=== PATIENT | male | born 1935 | race Caucasian/White ===

== ENCOUNTER 2019-04-29 09:10 | Inpatient (IN) | payer MEDICARE, OTHER ==
[~2019-04-29] VITALS: Ht 162.6 cm; Wt 92.5 kg
[2019-04-29 10:21] LABS: Basophils # (auto) 0 uL; Basophils % (auto) 0.3 % (0.0-2.0); Eosinophils # (auto) 0.1 uL; Eosinophils % (auto) 0.6 % (0.0-7.0); Hematocrit 46.2 % (41.0-53.0); Hemoglobin 15.6 g/dL (13.5-17.5); Lymphocytes # (auto) 1.1 uL; Lymphocytes % (auto) 10.9 % (10.0-50.0); Mean Corpuscular Hemoglobin 30.9 pg (28.0-32.0); Mean Corpuscular Hgb Conc. 33.7 g/dL (32.0-36.0); Mean Corpuscular Volume 91.9 fL (80.0-100.0); Monocytes # (auto) 0.8 uL; Monocytes % (auto) 7.9 % (0.0-12.0); Neutrophils % (auto) 80.3 % (37.0-80.0); Nucleated Red Blood Cells % 0.1 %; Platelet Count (auto) 124 10^3/uL (140-450); Red Blood Cells 5.03 10^6/uL (4.5-5.90); Red Cell Distribution Width 13.8 % (11.8-14.3)
[2019-04-29 10:34] LABS: Chloride 108 mmol/L (98-107); Potassium 3.8 mmol/L (3.5-5.1); Sodium 142 mmol/L (136-145)
[2019-04-29 10:47] LABS: Alanine Aminotransferase 25 U/L (16-61); Albumin 3.7 g/dL (3.4-5.0); Alkaline Phosphatase 59 U/L (45-117); Anion Gap 7 (5-15); Aspartate Aminotransferase 20 U/L (15-37); BUN/Creatinine Ratio 19.6; Bilirubin, Total 0.9 mg/dL (0.2-1.0); Blood Urea Nitrogen 18 mg/dL (7-18); Calcium 8.3 mg/dL (8.5-10.1); Carbon Dioxide 27 mmol/L (21-32); GFR African American 102 mL/min; GFR Non-African American 84 mL/min; Glucose 125 mg/dL (74-106); Magnesium 2.1 mg/dL (1.6-2.6)
[2019-04-29 12:32] LABS: Urine Bacteria NONE SEEN /hpf (None Seen); Urine Blood Negative /uL (Negative); Urine Specific Gravity 1.019 (1.001-1.035); Urine WBC <1 /hpf (0 - 3)
[2019-04-29] MEDS ORDERED: ONDANSETRON HCL 4 MG/2 ML VIAL IV PRN (14:45)
[2019-04-29] MEDS ORDERED: HYDROcodone-ACET 5/325MG TAB PO PRN (14:45)
[2019-04-29] MEDS ORDERED: ACETAMINOPHEN 500 MG TAB PO PRN (14:45)
[2019-04-29] MEDS ORDERED: hydrALAZINE HCL 20 MG/ML VL IV PRN (14:45)
[2019-04-29] MEDS ORDERED: MORPHINE SULF INJ 2 MG/ML SYRINGE 1ML IV PRN (14:45)
[2019-04-29] MEDS ORDERED: NITROGLYCERIN 0.4 MG SL TAB SL PRN (14:45)
[2019-04-29 15:13] LABS: Cholesterol 103 mg/dL (< 200)
[2019-04-29 15:16] LABS: HDL Cholesterol 38 mg/dL (40-59); LDL Cholesterol 60 mg/dL (< 100); Triglycerides 75 mg/dL (< 150)
[2019-04-29 20:30] VITALS: BP 120/71
--- NOTE | 2019-04-29 20:30 | NUR ---
Telemetry admit from [facility] admitted to Telemetry unit after SBAR received. Patient oriented to SANA GRIFFITH RN primary RN, unit, room, bed, and unit policies regarding patient care and visiting hours. Patient now on continuous telemetry monitoring, tele box # 21 and telemetry reading on arrival to unit is SR. Patient placed on bedside oxygen, weighed by bedscale and encouraged to call if they need something. All questions and concerns addressed, patient verbalized understanding.
[2019-04-29 22:00] VITALS: BP 120/71
[2019-04-29] MEDS: APIXABAN 2.5 MG TAB PO SCH (22:00)
[2019-04-29] MEDS: DOCUSATE SOD 100 MG CAP PO SCH (22:00)
[2019-04-29] MEDS: METOPROLOL TARTRATE 25 MG TAB PO SCH (22:01)
[2019-04-29] MEDS: ATORVASTATIN 20 MG TAB PO SCH (22:01)
[2019-04-30 05:00] VITALS: BP 113/73
[2019-04-30 06:31] LABS: Basophils # (auto) 0 uL; Basophils % (auto) 0.4 % (0.0-2.0); Eosinophils # (auto) 0.1 uL; Eosinophils % (auto) 1.4 % (0.0-7.0); Hematocrit 46.3 % (41.0-53.0); Hemoglobin 15.5 g/dL (13.5-17.5); Lymphocytes # (auto) 1.7 uL; Lymphocytes % (auto) 23.8 % (10.0-50.0); Mean Corpuscular Hgb Conc. 33.5 g/dL (32.0-36.0); Mean Corpuscular Volume 92.6 fL (80.0-100.0); Monocytes # (auto) 0.7 uL; Monocytes % (auto) 10.1 % (0.0-12.0); Neutrophils # (auto) 4.5 uL; Neutrophils % (auto) 64.3 % (37.0-80.0); Nucleated Red Blood Cells % 0.1 %; Platelet Count (auto) 118 10^3/uL (140-450); Red Cell Distribution Width 13.4 % (11.8-14.3)
[2019-04-30 06:37] LABS: INR 1.09 (0.9-1.15); Partial Thromboplastin Time 30.2 sec (23.64-32.05)
[2019-04-30 06:41] LABS: Calcium 8.6 mg/dL (8.5-10.1)
[2019-04-30 06:44] LABS: BUN/Creatinine Ratio 13.5
[2019-04-30 08:00] VITALS: BP 102/72
--- NOTE | 2019-04-30 08:00 | NUR ---
Opening Shift Note Assumed care of patient, resting with eyes closed, wakes easily to touch. No S/S of distress/SOB or pain. Instructed on POC and to call for assist PRN, will continue to monitor for changes Q1hr and PRN. Addendum: 04/30/19 at 0921 by CASI ANDERSON RN RN WRONG PATIENT
--- NOTE | 2019-04-30 08:00 | NUR ---
Opening Shift Note Assumed care of patient, awake and alert. Ambulatory independently. No S/S of distress/SOB or pain. Instructed on POC and to call for assist PRN, will continue to monitor for changes Q1hr and PRN.
[2019-04-30] MEDS ORDERED: ASPirin-EC 81 mg tab PO SCH (10:00)
[2019-04-30] MEDS: APIXABAN 2.5 MG TAB PO SCH ×2 (10:27→21:54)
[2019-04-30] MEDS: FAMOTIDINE 20 MG TAB PO SCH (10:27)
[2019-04-30] MEDS: DOCUSATE SOD 100 MG CAP PO SCH ×2 (10:27→21:53)
[2019-04-30] MEDS: LISINOPRIL 10 MG TAB PO SCH (10:27)
[2019-04-30] MEDS: METOPROLOL TARTRATE 25 MG TAB PO SCH ×2 (10:28→21:54)
[2019-04-30 12:00] VITALS: BP 144/86
[2019-04-30 17:00] VITALS: BP 121/99
--- NOTE | 2019-04-30 19:00 | NUR ---
Opening Shift Note Assumed care of patient, awake and alert. No S/S of distress/SOB or pain. Instructed on POC and to call for assist PRN, will continue to monitor for changes Q1hr and PRN.
--- NOTE | 2019-04-30 21:45 | NUR ---
Hospitalist paged: Patient informed RN he had difficulty falling asleep last night and he would like a sleeping aide to help him sleep tonight.
[2019-04-30] MEDS: ATORVASTATIN 20 MG TAB PO SCH (21:54)
--- NOTE | 2019-04-30 22:22 | NUR ---
Hospitalist returned page: Hospitalist updated on patient condition and situation. New orders obtained.
[2019-04-30] MEDS ORDERED: TEMAZEPAM 15 MG CAP PO PRN (22:30)
[2019-04-30 23:22] VITALS: BP 123/87
[2019-05-01 05:50] VITALS: BP 100/65
--- NOTE | 2019-05-01 08:00 | NUR ---
Opening Shift Note Assumed care of patient, awake and alert. No S/S of distress/SOB or pain. Patient ready to go home. Waiting for ECHO results and patient to be seen by MD. Instructed on POC and to call for assist PRN, will continue to monitor for changes Q1hr and PRN.
[2019-05-01 09:00] VITALS: BP 110/68
[2019-05-01] MEDS: DOCUSATE SOD 100 MG CAP PO SCH (09:54)
[2019-05-01] MEDS: FAMOTIDINE 20 MG TAB PO SCH (09:54)
[2019-05-01] MEDS: APIXABAN 2.5 MG TAB PO SCH (09:54)
[2019-05-01] MEDS: LISINOPRIL 10 MG TAB PO SCH (10:57)
[2019-05-01] MEDS: METOPROLOL TARTRATE 25 MG TAB PO SCH (10:57)
--- NOTE | 2019-05-01 12:04 | NUR ---
CARDIO BOWEN COLIN SAW THE PATIENT, ECHO RESULTED, SHE SAID IT WAS OK FOR PATIENT TO BE DISCHARGED TODAY AND FOLLOW UP WITH HIS MALE MODEL OUTPATIENT.
[2019-05-01 13:00] VITALS: BP 111/73
--- NOTE | 2019-05-01 16:00 | NUR ---
DISCHARGE WENT OVER DISCHARGE PAPERWORK WITH PATIENT. REMOVED IV AND ID BAND. REMOVED TELEMETRY AND SENT TELE BOX TO [facility]. GAVE PRESCRIPTION TO PATIENT. SPOUSE AT BEDSIDE. PATIENT IS ABLE TO WALK OUT ON HIS OWN, HAS BEEN WALKING AROUND DURING HIS STAY AND IS STABLE. ALL BELONGINGS TAKEN FROM ROOM, PATIENT LEFT IN PRIVATE VEHICLE.
== END 2019-05-01 16:04 | disposition home or self-care (01) | DRG 202 ==
LOC: EDBD 09:10 → ER 09:17 → TELE 09:18 → TELE-WESTW 20:19
PROVIDERS: ADMIT Nurse Practitioner Acute Care; ATTEND Internal Medicine
DX: J45.901 Unspecified asthma with (acute) exacerbation (principal); I24.9 Acute ischemic heart disease, unspecified; E78.00 Pure hypercholesterolemia, unspecified; E03.9 Hypothyroidism, unspecified; K21.9 Gastro-esophageal reflux disease without esophagitis; M19.90 Unspecified osteoarthritis, unspecified site; E66.9 Obesity, unspecified; E78.5 Hyperlipidemia, unspecified; I11.9 Hypertensive heart disease without heart failure; I48.2 Chronic atrial fibrillation; I08.1 Rheumatic disorders of both mitral and tricuspid valves; Z79.01 Long term (current) use of anticoagulants; Z82.49 Family history of ischemic heart disease and other diseases of the circulatory system; Z86.73 Personal history of transient ischemic attack (TIA), and cerebral infarction without residual deficits; Z68.35 Body mass index [BMI] 35.0-35.9, adult
CPT/HCPCS: 36415; 71046; 71250; 80048; 80053; 80061; 81001; 83735; 83880; 84443; 84484; 85025; 85610; 85730; 86141; 93005; 93306; 94761; G0378